=== PATIENT | male | born 1980 | race Caucasian/White ===

== ENCOUNTER 2016-09-13 19:29 | Emergency (ER) | payer SELFPAY ==
[~2016-09-13] VITALS: Ht 167.6 cm; Wt 65.9 kg
[2016-09-13 19:33] VITALS: BP 168/99
== END 2016-09-13 20:57 | disposition home or self-care (01) ==
LOC: EMS 19:32
DX: S50.811A Abrasion of right forearm, initial encounter (principal); S00.01XA Abrasion of scalp, initial encounter; F17.210 Nicotine dependence, cigarettes, uncomplicated; W50.3XXA Accidental bite by another person, initial encounter; Y93.89 Activity, other specified; Y92.098 Other place in other non-institutional residence as the place of occurrence of the external cause; Y99.8 Other external cause status
CPT/HCPCS: 99283